=== PATIENT | female | born 1955 | race American Indian/Alaskan Native ===

== ENCOUNTER 2016-12-25 11:07 | Emergency (ER) | payer MEDICARE ==
--- NOTE | 2016-12-25 11:29 | Emergency Department Report ---
Stated Complaint: ABDOMINAL PAIN Time Seen by Provider: 12/25/16 11:24 - HPI History of Present Illness: PT states she has been feeling tired, diarrhea, and dysuria since yesterday. PT states she has a home health nurse and she checked her urine and told her that she needs antibiotics. PT states she has a RX at home for antibiotics but her home health nurse would not go fill them - ROS Review of Systems: + diarrhea + dysuria + fatigue - Exam Physical Exam: No CVA tenderness PT is alert and appropriate MSE screening note: Focused history and physical exam performed. Due to findings the following was ordered: labs ED Disposition for MSE Condition: Stable
[2016-12-25 11:44] LABS: Basophils % (Auto) 0.4 % (0.0-1.8); Eosinophils % (Auto) 1.7 % (0.0-4.3); Hematocrit 34.2 % (30.3-42.9); Hemoglobin 11.2 gm/dl (10.1-14.3); Mean Corpuscular HGB Conc 33 % (30-34); Mean Corpuscular Hemoglobin 29 pg (28-32); Mean Corpuscular Volume 89 fl (79-97); Platelet Count 301 K/mm3 (140-440); Red Blood Count 3.83 M/mm3 (3.65-5.03); Red Cell Distribution Width 15.3 % (13.2-15.2); White Blood Count 9.8 K/mm3 (4.5-11.0)
[2016-12-25 12:07] LABS: Alanine Aminotransferase 6 units/L (7-56); Albumin 4.2 g/dL (3.9-5); Albumin/Globulin Ratio 1.1 %; Alkaline Phosphatase 71 units/L (35-129); BUN/Creatinine Ratio 28; Blood Urea Nitrogen 28 mg/dL (7-17); Carbon Dioxide 20 mmol/L (22-30); Glucose 86 mg/dL (65-100); Total Protein 8.2 g/dL (6.3-8.2)
[2016-12-25 12:08] LABS: Anion Gap 20 mmol/L; Chloride 100.5 mmol/L (98-107); Potassium 4.6 mmol/L (3.6-5.0); Sodium 136 mmol/L (137-145)
[2016-12-25 12:43] LABS: Bilirubin,Urine NEG (Negative); Blood,Urine SM (Negative); Ketones,Urine NEG (Negative); Leukocyte Esterase,Urine NEG (Negative); Nitrite,Urine NEG (Negative); Protein,Urine <15 mg/dL mg/dL (Negative); Urobilinogen,Urine < 2.0 mg/dL (<2.0)
--- NOTE | 2016-12-25 13:21 | Emergency Department Report ---
HPI - General Chief Complaint: Abdominal Pain Time Seen by Provider: 12/25/16 11:24 - HPI HPI: 61-year-old female presents to the emergency department by EMS from home with complaint of a few days of some right lower quadrant abdominal and flank pain, burning with urination. She denies any fever, nausea, vomiting , chest pain or shortness of breath. She has not taken anything for her symptoms prior presentation. The patient was admitted to [facility] in the middle of this month for some chest pain and shortness of breath and appears to have been discharged home with a very short course of antibiotics. The patient says that she never was able to fill those antibiotics and is concerned that she developed a urinary tract infection. No recent travel or sick contacts at home. Her primary care physician is Dr. Zapien. ED Past Medical Hx - Past Medical History Previous Medical History?: Yes Hx Hypertension: Yes Hx CVA: Yes Hx Congestive Heart Failure: Yes Hx Diabetes: Yes (Type 2) Hx Arthritis: Yes Hx Headaches / Migraines: Yes Hx Asthma: No Hx COPD: Yes - Surgical History Past Surgical History?: Yes Additional Surgical History: OPEN HEART SURGERY VALVE SURGERY 2013 Dr. SANTROO - Social History Smoking Status: Former Smoker Substance Use Type: None - Medications Home Medications: Home Medications Medication Instructions Recorded Confirmed Last Taken Type Clopidogrel [Plavix] 75 mg PO DAILY tablet 02/18/15 12/25/16 Unknown Rx Insulin Glargine,Hum.rec.anlog 15 units SQ HS 12/25/16 12/25/16 Unknown History [Lantus Solostar] Potassium Chloride [K-Tab ER] 20 meq PO BID 12/25/16 12/25/16 Unknown History Spironolactone [Aldactone] 25 mg PO QDAY 12/25/16 12/25/16 Unknown History ED Review of Systems ROS: Stated complaint: ABDOMINAL PAIN Other details as noted in HPI Comment: All other systems reviewed and negative Constitutional: denies: chills, fever Eyes: denies: eye pain, eye discharge, vision change ENT: denies: ear pain, throat pain Respiratory: denies: cough, shortness of breath, wheezing Cardiovascular: denies: chest pain, palpitations Gastrointestinal: abdominal pain. denies: nausea, vomiting Genitourinary: dysuria. denies: discharge Musculoskeletal: denies: back pain, joint swelling, arthralgia Skin: denies: rash, lesions Neurological: denies: headache, weakness, paresthesias Physical Exam - Physical Exam Vital Signs: Vital Signs 12/25/16 12/25/16 11:24 12:36 Temperature 97.8 F 97.9 F Pulse Rate 72 55 L Respiratory 16 16 Rate Blood Pressure 130/79 Blood Pressure 144/72 [Left] O2 Sat by Pulse 100 100 Oximetry Physical Exam: GENERAL: The patient is well-developed well-nourished. HENT: Normocephalic. Atraumatic. Patient has moist mucous membranes. EYES: Extraocular motions are intact. Pupils equal reactive to light bilaterally. NECK: Supple. Trachea is midline. CHEST/LUNGS: Clear to auscultation. There is no respiratory distress noted. HEART/CARDIOVASCULAR: Regular. There is no tachycardia. There is no gallop rub or murmur. ABDOMEN: Abdomen is soft. Unable to reproduce patient's right lower quadrant and right flank pain to palpation. No guarding or rebound tenderness. Patient has normal bowel sounds. There is no abdominal distention. SKIN: Skin is warm and dry. NEURO: The patient is awake, alert, and oriented. The patient is cooperative. The patient has no focal neurologic deficits. The patient has normal speech. MUSCULOSKELETAL: There is no tenderness or deformity. There is no evidence of acute injury. ED Course Vital Signs 12/25/16 12/25/16 11:24 12:36 Temperature 97.8 F 97.9 F Pulse Rate 72 55 L Respiratory 16 16 Rate Blood Pressure 130/79 Blood Pressure 144/72 [Left] O2 Sat by Pulse 100 100 Oximetry ED Medical Decision Making - Lab Data Result diagrams: 12/25/16 11:32 12/25/16 11:32 - Radiology Data Radiology results: report reviewed EXAM: CT ABDOMEN PELVIS W CON HISTORY: RLQ abd pain TECHNIQUE: CT abdomen and pelvis with intravenous contrast PRIORS: None. FINDINGS: No acute abnormality identified in the lung bases. No focal abnormality identified within the liver parenchyma. The spleen demonstrates normal size and attenuation. No pancreatic abnormalities seen. The kidneys demonstrate symmetric contrast enhancement. No evidence of hydronephrosis. Several small low-density foci are present right kidney likely reflecting cysts. There is a prominent upper pole left renal cyst 4.3 centimeters The adrenal glands are unremarkable Abdominal aorta is normal in caliber. No pathologically enlarged lymph nodes are identified. No signs of free fluid or free air No evidence of small bowel dilatation. Colon is nondistended. No pericolonic inflammatory change. The appendix is identified and is unremarkable. Urinary bladder is unremarkable. There is a left adnexal cyst measuring 3.4 centimeters in transverse diameter IMPRESSION: Renal cysts with prominent upper pole left renal cyst Left adnexal cyst 3.4 centimeters Otherwise no acute findings Transcribed By: NOLVIA Dictated By: NEERAJ KNAPP MD Electronically Authenticated By: NEERAJ KNAPP MD Signed Date/Time: 12/25/16 4721 - Medical Decision Making 61 yo presents with the complaint of some lower abd pain and she believes she has a UTI since she had a mild one one recent discharge and has some mild dysuria. Labs are unremarkable, including no UTI. Vitals stable throughout her ED course. She was given some pain medication and looked comfortable throughout her ED stay. CT abd/pelvis shows ovarian cyst but otherwise no acute process or obvious etiology of her symptoms. She has good follow up with PCP. She was seen ambulatory in the ED and was stable while doing so. Will f/u with PCP and return to the ED with any worsening of her symptoms or any acute distress. Critical Care Time: No Critical care attestation.: If time is entered above; I have spent that time in minutes in the direct care of this critically ill patient, excluding procedure time. ED Disposition Clinical Impression: Abdominal pain Qualifiers: Abdominal location: right lower quadrant Qualified Code(s): R10.31 - Right lower quadrant pain Ovarian cyst Qualifiers: Laterality: left Qualified Code(s): N83.202 - Unspecified ovarian cyst, left side Disposition: TO HOME OR SELFCARE Is pt being admited?: No Condition: Stable Instructions: Abdominal Pain (ED) Additional Instructions: Please follow-up with your primary care physician in the next few days. Return to the emergency Department with any worsening of her symptoms or any acute distress. Referrals: DAILY ZAPIEN MD [Staff Physician] - [facility] Time of Disposition: 15:56
[2016-12-25] MEDS ORDERED: MORPHINE IV ONE (14:27)
[2016-12-25] MEDS ORDERED: MORPHINE ONE (14:34)
--- NOTE | 2016-12-25 18:01 | Cat Scan Report ---
FINAL REPORT EXAM: CT ABDOMEN PELVIS W CON HISTORY: RLQ abd pain TECHNIQUE: CT abdomen and pelvis with intravenous contrast PRIORS: None. FINDINGS: No acute abnormality identified in the lung bases. No focal abnormality identified within the liver parenchyma. The spleen demonstrates normal size and attenuation. No pancreatic abnormalities seen. The kidneys demonstrate symmetric contrast enhancement. No evidence of hydronephrosis. Several small low-density foci are present right kidney likely reflecting cysts. There is a prominent upper pole left renal cyst 4.3 centimeters The adrenal glands are unremarkable Abdominal aorta is normal in caliber. No pathologically enlarged lymph nodes are identified. No signs of free fluid or free air No evidence of small bowel dilatation. Colon is nondistended. No pericolonic inflammatory change. The appendix is identified and is unremarkable. Urinary bladder is unremarkable. There is a left adnexal cyst measuring 3.4 centimeters in transverse diameter IMPRESSION: Renal cysts with prominent upper pole left renal cyst Left adnexal cyst 3.4 centimeters Otherwise no acute findings
[2016-12-25 18:12] VITALS: BP 139/66
[2016-12-25] MEDS ORDERED: ARTIFICIAL TEARS OPHTH OINT OU PRN (18:32)
[2016-12-25] MEDS ORDERED: DIPRIVAN 10 MG/ML 1,000 MG/100 ML BOTTLE IV SCH (19:00)
== END 2016-12-25 19:15 | disposition home or self-care (01) ==
LOC: ED 11:07
DX: N83.202 Unspecified ovarian cyst, left side (principal); I10 Essential (primary) hypertension; I50.9 Heart failure, unspecified; E11.9 Type 2 diabetes mellitus without complications; M19.90 Unspecified osteoarthritis, unspecified site; G43.909 Migraine, unspecified, not intractable, without status migrainosus; J44.9 Chronic obstructive pulmonary disease, unspecified; Z87.891 Personal history of nicotine dependence; Z86.73 Personal history of transient ischemic attack (TIA), and cerebral infarction without residual deficits
CPT/HCPCS: 36415; 74177; 80053; 81001; 85025; 87086; 96374; 99284; J2270; Q9967

== ENCOUNTER 2018-03-23 13:42 | Emergency (ER) | payer MEDICARE ==
[2018-03-23] MEDS ORDERED: IBUPROFEN PO ONE (14:57)
--- NOTE | 2018-03-23 15:17 | Emergency Department Report ---
ED General Adult HPI - General Chief complaint: Headache Stated complaint: HEMORRHOID Time Seen by Provider: 03/23/18 14:22 Source: patient Mode of arrival: Ambulatory Limitations: No Limitations - History of Present Illness Initial comments: PT IS 63 YO FEMALE WITH CC OF HEMORRHOIDS BLEEDING TODAY. ALSO WITH BO. SHE APPEARS MUCH OLDER THAN STATED AGE WITH MANY MEDICAL PROBLEMS. HER W HER SONS. SHE IS SOB BUT IS ALWAYS SOB GIVEN HER HEART DISEASE HOME MEDS LASIX METOLAZONE PLAVIX METOPROPOL PPI SPIRONLDACTONE -: Sudden, days(s) Severity scale (0 -10): 6 Associated Symptoms: headaches, shortness of breath. denies: confusion, chest pain, cough, diaphoresis, fever/chills, loss of appetite, malaise, nausea/vomiting, rash, seizure, syncope, weakness Treatments Prior to Arrival: none - Related Data Home Medications Medication Instructions Recorded Confirmed Last Taken Insulin Glargine,Hum.rec.anlog 15 units SQ HS 12/25/16 12/25/16 Unknown [Lantus Solostar] Potassium Chloride [K-Tab ER] 20 meq PO BID 12/25/16 12/25/16 Unknown Spironolactone [Aldactone] 25 mg PO QDAY 12/25/16 12/25/16 Unknown Previous Rx's Medication Instructions Recorded Last Taken Type RX: Clopidogrel [Plavix] 75 mg PO DAILY tablet 02/18/15 Unknown Rx Phenylephrine HCl/[place] Butter 1 each RC BID #60 supp.rect 03/23/18 Unknown Rx [Preparation H Suppository] Allergies Allergy/AdvReac Type Severity Reaction Status Date / Time Penicillins Allergy Swelling Verified 03/23/18 14:03 ED Review of Systems ROS: Stated complaint: HEMORRHOID Other details as noted in HPI Comment: All other systems reviewed and negative Constitutional: denies: chills, fever Eyes: denies: eye pain ENT: denies: ear pain Respiratory: see HPI, shortness of breath. denies: cough Cardiovascular: as per HPI, dyspnea on exertion. denies: chest pain Endocrine: no symptoms reported Gastrointestinal: as per HPI, diarrhea. denies: abdominal pain, nausea, vomiting, constipation, hematemesis, melena, hematochezia Genitourinary: denies: urgency Musculoskeletal: denies: back pain Skin: denies: lesions Neurological: denies: headache Psychiatric: denies: anxiety Hematological/Lymphatic: denies: easy bleeding ED Past Medical Hx - Past Medical History Previous Medical History?: Yes Hx Hypertension: Yes Hx CVA: Yes Hx Congestive Heart Failure: Yes Hx Diabetes: Yes (Type 2) Hx Arthritis: Yes Hx Headaches / Migraines: Yes Hx Asthma: No Hx COPD: Yes - Surgical History Past Surgical History?: Yes Additional Surgical History: OPEN HEART SURGERY VALVE SURGERY 2013 Dr. SANTORO - Family History Family history: no significant - Social History Smoking Status: Former Smoker Substance Use Type: None - Medications Home Medications: Home Medications Medication Instructions Recorded Confirmed Last Taken Type RX: Clopidogrel [Plavix] 75 mg PO DAILY tablet 02/18/15 12/25/16 Unknown Rx Insulin Glargine,Hum.rec.anlog 15 units SQ HS 12/25/16 12/25/16 Unknown History [Lantus Solostar] Potassium Chloride [K-Tab ER] 20 meq PO BID 12/25/16 12/25/16 Unknown History Spironolactone [Aldactone] 25 mg PO QDAY 12/25/16 12/25/16 Unknown History Phenylephrine HCl/[place] Butter 1 each RC BID #60 supp.rect 03/23/18 Unknown Rx [Preparation H Suppository] ED Physical Exam - General Limitations: No Limitations General appearance: alert - Head Head exam: Present: atraumatic - Eye Eye exam: Present: PERRL, EOMI - ENT ENT exam: Present: mucous membranes moist - Neck Neck exam: Present: normal inspection - Respiratory Respiratory exam: Present: normal lung sounds bilaterally, wheezes - Cardiovascular Cardiovascular Exam: Present: regular rate - GI/Abdominal GI/Abdominal exam: Present: soft, normal bowel sounds - Rectal Rectal exam: Present: normal inspection, hemorrhoids - Extremities Exam Extremities exam: Present: normal inspection, full ROM - Back Exam Back exam: Present: normal inspection, full ROM. Absent: CVA tenderness (R), CVA tenderness (L) - Neurological Exam Neurological exam: Present: alert, oriented X3, CN II-XII intact, normal gait - Psychiatric Psychiatric exam: Present: normal affect, normal mood - Skin Skin exam: Present: warm, dry, intact ED Course Vital Signs 03/23/18 03/23/18 03/23/18 14:03 17:12 17:22 Temperature 97.8 F Pulse Rate 74 Pulse Rate [ 74 76 Anterior Bilateral Throughout] Respiratory 18 Rate Respiratory 18 16 Rate [Anterior Bilateral Throughout] Blood Pressure 140/64 Blood Pressure [Left] O2 Sat by Pulse 100 Oximetry 03/23/18 19:04 Temperature 98.2 F Pulse Rate 72 Pulse Rate [ Anterior Bilateral Throughout] Respiratory 18 Rate Respiratory Rate [Anterior Bilateral Throughout] Blood Pressure Blood Pressure 144/74 [Left] O2 Sat by Pulse 97 Oximetry ED Medical Decision Making - Lab Data Result diagrams: 03/23/18 15:10 03/23/18 15:10 - Radiology Data Radiology results: report reviewed, image reviewed NAP - Medical Decision Making labs and ua noted normal dc home with family who verbalize understanding of follow up plan of care Lab Results 03/23/18 03/23/18 Range/Units 15:10 15:10 WBC 11.3 H (4.5-11.0) K/mm3 RBC 3.59 L (3.65-5.03) M/mm3 Hgb 11.7 (10.1-14.3) gm/dl Hct 33.0 (30.3-42.9) % MCV 92 (79-97) fl MCH 33 H (28-32) pg MCHC 36 H (30-34) % RDW 13.6 (13.2-15.2) % Plt Count 339 (140-440) K/mm3 Sodium 139 (137-145) mmol/L Potassium 3.4 L (3.6-5.0) mmol/L Chloride 99.9 (98-107) mmol/L Carbon Dioxide 19 L (22-30) mmol/L Anion Gap 24 mmol/L BUN 26 H (7-17) mg/dL Creatinine 1.2 (0.7-1.2) mg/dL Estimated GFR 55 ml/min BUN/Creatinine Ratio 22 % Glucose 132 H (65-100) mg/dL Calcium 9.5 (8.4-10.2) mg/dL Total Bilirubin 0.20 (0.1-1.2) mg/dL AST 15 (5-40) units/L ALT 9 (7-56) units/L Alkaline Phosphatase 88 (35-129) units/L NT-Pro-B Natriuret Pep 299.2 (0-900) pg/mL Total Protein 8.5 H (6.3-8.2) g/dL Albumin 4.2 (3.9-5) g/dL Albumin/Globulin Ratio 1.0 % Labs 03/23/18 03/23/18 03/23/18 15:10 15:10 18:20 WBC 11.3 H RBC 3.59 L Hgb 11.7 Hct 33.0 MCV 92 MCH 33 H MCHC 36 H RDW 13.6 Plt Count 339 Sodium 139 Potassium 3.4 L Chloride 99.9 Carbon Dioxide 19 L Anion Gap 24 BUN 26 H Creatinine 1.2 Estimated GFR 55 BUN/Creatinine Ratio 22 Glucose 132 H Calcium 9.5 Total Bilirubin 0.20 AST 15 ALT 9 Alkaline Phosphatase 88 NT-Pro-B Natriuret Pep 299.2 Total Protein 8.5 H Albumin 4.2 Albumin/Globulin Ratio 1.0 Urine Color Yellow Urine Turbidity Slightly-cloudy Urine pH 5.0 Ur Specific [place] 1.010 Urine Protein 30 mg/dl Urine Glucose (UA) Neg Urine Ketones Neg Urine Blood Sm Urine Nitrite Neg Urine Bilirubin Neg Urine Urobilinogen < 2.0 Ur Leukocyte Esterase Lg Urine WBC (Auto) 58.0 H Urine RBC (Auto) 12.0 U Epithel Cells (Auto) 2.0 Urine Bacteria (Auto) 4+ Urine WBC Clumps 2+ Hyaline Casts 1 - Differential Diagnosis RO URTI; RO CHF; RO COPD AE Critical care attestation.: If time is entered above; I have spent that time in minutes in the direct care of this critically ill patient, excluding procedure time. ED Disposition Clinical Impression: Hypokalemia, Hemorrhoids, COPD (chronic obstructive pulmonary disease) Disposition: TO HOME OR SELFCARE Is pt being admited?: No Does the pt Need Aspirin: No Condition: Stable Instructions: Hemorrhoids (ED), Hypokalemia (ED), Chronic Obstructive Pulmonary Disease (ED) Additional Instructions: BLOOD COUNTS ARE GOOD TODAY YOUR POTASSIUM WAS A LITTLE LOW CHEST XRAY NORMAL NO EVIDENCE OF TOO MUCH FLUID AROUND YOUR HEART/LUNGS OVER THE COUNTER PREPARATION H FOR HEMORRHOIDS HYDRATE WELL WITH WATER EAT FOOD HIGH IN POTASSIUM EVERY DAY BANANAS AND ORANGES ARE GOOD SOURCES ACTIVITY TOLERATED MOTRIN OR TYLENOL FOR PAIN OR FEVER FOLLOW UP WITH PCP ON SUNDAY TO BE SURE YOU ARE GETTING BETTER LET HIM KNOW ABOUT YOUR VISIT CARDIAC DIET Prescriptions: Phenylephrine HCl/[place] Butter [Preparation H Suppository] 1 each RC BID #60 supp.rect Referrals: REJI BRADY MD [Primary Care Provider] - 3-5 Days Time of Disposition: 18:14
[2018-03-23 15:34] LABS: Hemoglobin 11.7 gm/dl (10.1-14.3); Mean Corpuscular HGB Conc 36 % (30-34); Mean Corpuscular Volume 92 fl (79-97); Platelet Count 339 K/mm3 (140-440); Red Blood Count 3.59 M/mm3 (3.65-5.03); Red Cell Distribution Width 13.6 % (13.2-15.2)
[2018-03-23 15:48] LABS: Albumin 4.2 g/dL (3.9-5); Calcium 9.5 mg/dL (8.4-10.2)
[2018-03-23] MEDS ORDERED: PROVENTIL IH ONE (15:55)
[2018-03-23] MEDS ORDERED: K-DUR PO ONE (16:42)
[2018-03-23] MEDS ORDERED: HEMORRHOIDAL 0.25/3/85.5% PR ONE (17:00)
--- NOTE | 2018-03-23 17:02 | XRay Report ---
FINAL REPORT EXAM: XR CHEST ROUTINE 2V HISTORY: cough TECHNIQUE: Frontal and lateral chest radiographs. PRIORS: 12/25/2014. FINDINGS: Unchanged median sternotomy wires and valve prosthesis. Unchanged aortic calculi. The cardiomediastin al silhouette is normal. No focal consolidation. No pleural effusion. No pneumothorax. No acute osseous abnormality. IMPRESSION: No acute cardiopulmonary process.
[2018-03-23 19:01] LABS: Bacteria,Urine 4+ /HPF (Negative); Bilirubin,Urine NEG (Negative); Blood,Urine SM (Negative); Color,Urine Yellow (Yellow); Hyaline Casts,Urine 1 /LPF; Urobilinogen,Urine < 2.0 mg/dL (<2.0)
[2018-03-23 19:06] VITALS: BP 144/74
== END 2018-03-23 19:04 | disposition home or self-care (01) ==
LOC: ED 13:42
DX: J44.9 Chronic obstructive pulmonary disease, unspecified (principal); K64.9 Unspecified hemorrhoids; E87.6 Hypokalemia; I11.0 Hypertensive heart disease with heart failure; I50.9 Heart failure, unspecified; E11.9 Type 2 diabetes mellitus without complications; M19.90 Unspecified osteoarthritis, unspecified site; G43.909 Migraine, unspecified, not intractable, without status migrainosus; Z86.73 Personal history of transient ischemic attack (TIA), and cerebral infarction without residual deficits; Z79.899 Other long term (current) drug therapy; Z88.0 Allergy status to penicillin; Z79.4 Long term (current) use of insulin
CPT/HCPCS: 36415; 71046; 80053; 81001; 83880; 85027; 94640

== ENCOUNTER 2018-11-10 08:57 | Emergency (ER) | payer MEDICARE ==
[2018-11-10] MEDS ORDERED: ZOFRAN IV ONE (09:25)
[2018-11-10] MEDS ORDERED: MORPHINE IV ONE (09:25)
--- NOTE | 2018-11-10 09:30 | Emergency Department Report ---
ED Extremity Problem HPI - General Chief complaint: Extremity Problem,Nontraumatic Stated complaint: RT ARM CRAMPING/PAIN Time Seen by Provider: 11/10/18 09:04 Source: patient, EMS Mode of arrival: Stretcher Limitations: No Limitations - History of Present Illness Initial comments: Patient is 63 years old female with history of hypertension, diabetes and CVA. Patient brought to the emergency room via EMS for chief complaint and off right upper and lower extremity pain that is started last night. Patient stated that it hurt to move her right upper extremity and right lower extremity. Patient denied any recent injury or fall. She also denied any fever or chills. She stated that she had the symptoms before. Patient denied any left-sided chest pain, cough or shortness of breath. MD Complaint: extremity pain - Related Data Home Medications Medication Instructions Recorded Confirmed Last Taken Insulin Glargine,Hum.rec.anlog 15 units SQ HS 12/25/16 12/25/16 Unknown [Lantus Solostar] Potassium Chloride [K-Tab ER] 20 meq PO BID 12/25/16 12/25/16 Unknown Spironolactone [Aldactone] 25 mg PO QDAY 12/25/16 11/10/18 Unknown ALBUTEROL Inhaler (OR & NICU) 2 puff IH QID PRN 11/10/18 11/10/18 Unknown [Proair] Metoprolol [Lopressor] 25 mg PO BID 11/10/18 11/10/18 Unknown Pantoprazole [Protonix] 40 mg PO QDAY 11/10/18 11/10/18 Unknown metOLazone [Zaroxolyn] 5 mg PO 11/10/18 Unknown Previous Rx's Medication Instructions Recorded Last Taken Type Clopidogrel [Plavix] 75 mg PO DAILY tablet 02/18/15 Unknown Rx Phenylephrine HCl/[place] Butter 1 each RC BID #60 supp.rect 03/23/18 Unknown Rx [Preparation H Suppository] Allergies Allergy/AdvReac Type Severity Reaction Status Date / Time Penicillins Allergy Swelling Verified 03/23/18 14:03 ED Review of Systems ROS: Stated complaint: RT ARM CRAMPING/PAIN Other details as noted in HPI Comment: All other systems reviewed and negative Constitutional: denies: chills, fever Respiratory: denies: cough, shortness of breath, SOB with exertion Cardiovascular: denies: chest pain, palpitations Gastrointestinal: denies: abdominal pain, nausea, vomiting, diarrhea, constipa tion, hematemesis, melena, hematochezia Musculoskeletal: denies: back pain Neurological: denies: headache, weakness, numbness, paresthesias, confusion ED Past Medical Hx - Past Medical History Hx Hypertension: Yes Hx CVA: Yes Hx Congestive Heart Failure: Yes Hx Diabetes: Yes (Type 2) Hx Arthritis: Yes Hx Headaches / Migraines: Yes Hx Asthma: No Hx COPD: Yes - Surgical History Additional Surgical History: OPEN HEART SURGERY VALVE SURGERY 2013 Dr. SANTORO - Social History Smoking Status: Former Smoker Substance Use Type: None - Medications Home Medications: Home Medications Medication Instructions Recorded Confirmed Last Taken Type Clopidogrel [Plavix] 75 mg PO DAILY tablet 02/18/15 11/10/18 Unknown Rx Insulin Glargine,Hum.rec.anlog 15 units SQ HS 12/25/16 12/25/16 Unknown History [Lantus Solostar] Potassium Chloride [K-Tab ER] 20 meq PO BID 12/25/16 12/25/16 Unknown History Spironolactone [Aldactone] 25 mg PO QDAY 12/25/16 11/10/18 Unknown History Phenylephrine HCl/[place] Butter 1 each RC BID #60 supp.rect 03/23/18 Unknown Rx [Preparation H Suppository] ALBUTEROL Inhaler (OR & NICU) 2 puff IH QID PRN 11/10/18 11/10/18 Unknown History [Proair] Metoprolol [Lopressor] 25 mg PO BID 11/10/18 11/10/18 Unknown History Pantoprazole [Protonix] 40 mg PO QDAY 11/10/18 11/10/18 Unknown History metOLazone [Zaroxolyn] 5 mg PO 11/10/18 Unknown History ED Physical Exam - General Limitations: No Limitations General appearance: alert, in no apparent distress - Head Head exam: Present: atraumatic, normocephalic, normal inspection - Eye Eye exam: Present: normal appearance, PERRL - ENT ENT exam: Present: normal exam, normal orophraynx, mucous membranes moist - Neck Neck exam: Present: normal inspection, full ROM. Absent: tenderness, meningismus, lymphadenopathy, thyromegaly - Respiratory Respiratory exam: Present: normal lung sounds bilaterally - Cardiovascular Cardiovascular Exam: Present: regular rate, normal rhythm, bradycardia, normal heart sounds - GI/Abdominal GI/Abdominal exam: Present: soft. Absent: distended, tenderness, rebound, rigid, organomegaly, mass, bruit, pulsatile mass - Extremities Exam Extremities exam: Present: normal inspection, full ROM, tenderness, normal capillary refill. Absent: pedal edema, joint swelling, calf tenderness - Back Exam Back exam: Present: normal inspection, full ROM. Absent: CVA tenderness (R), CVA tenderness (L) - Neurological Exam Neurological exam: Present: alert, oriented X3, CN II-XII intact, normal gait, reflexes normal - Psychiatric Psychiatric exam: Present: normal mood - Skin Skin exam: Present: warm, intact, normal color ED Course Vital Signs 11/10/18 11/10/18 11/10/18 09:07 10:20 10:25 Temperature 97.9 F Pulse Rate 56 L Respiratory 20 17 17 Rate Blood Pressure 139/71 O2 Sat by Pulse 99 Oximetry ED Medical Decision Making - Lab Data Result diagrams: 11/10/18 09:30 11/10/18 09:30 - Radiology Data Radiology results: report reviewed - Medical Decision Making Patient is 63 years old female with history of hypertension, diabetes and CVA. Patient brought to the emergency room via EMS for chief complaint and off right upper and lower extremity pain that is started last night. Patient stated that it hurt to move her right upper extremity and right lower extremity. Patient denied any recent injury or fall. She also denied any fever or chills. She stated that she had the symptoms before. Patient denied any left-sided chest pain, cough or shortness of breath. Patient received morphine and Zofran. Patient stated that she is feeling much better. Pain completely resolved. Labs reviewed and is unremarkable. Chest x- ray with rib details and right hip x-rays negative for acute finding. Patient advised to follow-up with her primary care physician in the next 2-3 days and to return to the ER if she developed any new symptoms. Critical care attestation.: If time is entered above; I have spent that time in minutes in the direct care of this critically ill patient, excluding procedure time. ED Disposition Clinical Impression: Acute pain in joint Disposition: DC-01 TO HOME OR SELFCARE Is pt being admited?: No Condition: Stable Instructions: Osteoarthritis (ED) Referrals: NELLY PRICE MD [Primary Care Provider] - 3-5 Days
[2018-11-10 09:55] LABS: Basophils % (Auto) 0.4 % (0.0-1.8); Eosinophils # (Auto) 0.1 K/mm3 (0.0-0.4); Hematocrit 36.5 % (30.3-42.9); Hemoglobin 12.2 gm/dl (10.1-14.3); Lymphocytes # (Auto) 3.6 K/mm3 (1.2-5.4); Lymphocytes % (Auto) 33.6 % (13.4-35.0); Mean Corpuscular HGB Conc 34 % (30-34); Mean Corpuscular Volume 89 fl (79-97); Monocytes # (Auto) 1.2 K/mm3 (0.0-0.8); Monocytes % (Auto) 11.4 % (0.0-7.3); Platelet Count 215 K/mm3 (140-440); Red Blood Count 4.11 M/mm3 (3.65-5.03); Red Cell Distribution Width 14.4 % (13.2-15.2)
[2018-11-10 10:28] LABS: Alanine Aminotransferase 8 units/L (7-56); Albumin 3.5 g/dL (3.9-5); BUN/Creatinine Ratio 18; Blood Urea Nitrogen 20 mg/dL (7-17); Calcium 9.3 mg/dL (8.4-10.2); Hemolysis Index 4
--- NOTE | 2018-11-10 10:38 | XRay Report ---
RIGHT HIP AND PELVIS 2 VIEWS INDICATION: hip pain. COMPARISON: No relevant prior imaging study available. FINDINGS: No acute fracture or dislocation. There is mild osteoarthrosis at the hips. IMPRESSION: 1. No acute findings. Signer Name: Mickey Logan MD Signed: 11/10/2018 10:33 AM Workstation Name: [id number]
--- NOTE | 2018-11-10 10:39 | XRay Report ---
RIGHT RIB SERIES 5 VIEWS INDICATION: chest pain. COMPARISON: Chest radiograph 03/23/2018. FINDINGS: On the included chest radiograph, there are mild diffuse bilateral pulmonary opacities. This could be due to pulmonary edema but is nonspecific. No pleural abnormality. No acute, displaced right-sided rib fractures are seen. IMPRESSION: 1. No acute rib fracture. 2. Nonspecific bilateral pulmonary opacities could be due to pulmonary edema. No effusion is seen. Signer Name: Mickey Logan MD Signed: 11/10/2018 10:35 AM Workstation Name: [id number]
[2018-11-10 13:08] VITALS: BP 154/46
== END 2018-11-10 13:08 | disposition home or self-care (01) ==
LOC: ED 08:57
DX: M79.601 Pain in right arm (principal); M79.604 Pain in right leg; I11.0 Hypertensive heart disease with heart failure; I50.9 Heart failure, unspecified; E11.9 Type 2 diabetes mellitus without complications; M19.90 Unspecified osteoarthritis, unspecified site; G43.909 Migraine, unspecified, not intractable, without status migrainosus; J44.9 Chronic obstructive pulmonary disease, unspecified; Z86.73 Personal history of transient ischemic attack (TIA), and cerebral infarction without residual deficits; Z98.890 Other specified postprocedural states; Z87.891 Personal history of nicotine dependence; Z79.4 Long term (current) use of insulin; Z79.899 Other long term (current) drug therapy; Z88.0 Allergy status to penicillin
CPT/HCPCS: 36415; 71101; 73502; 80053; 85025; 96374; 96375; 99284; J2270; J2405